=== PATIENT | female | born 1950 | race Two or more races ===

== ENCOUNTER 2025-02-20 08:58 | Outpatient (AMB) | payer MEDICAID, SELFPAY ==
[2025-02-20 09:15] VITALS: BP 143/85; PULSE 79; RESP 19; TEMP 36.3; O2SAT 96; BMI 32.5
--- NOTE | 2025-02-20 09:15 | PD.ORTHCLVIS ---
Vital signs 02/20/25 09:15 Height 1.65 m Height Method Stated Weight 88.706 kg Weight Measurement Method Standing Scale BMI 32.5 BP 143/85 H Blood Pressure Source Automatic Cuff Blood Pressure Location Left Upper Arm Position Sitting Respiration 19 Pulse 79 Pulse Source Monitor Temp 97.4 F Temp Source Temporal Artery Scan Pulse Oximetry (%) 96 Oxygen Delivery Method Room Air Med/Allergies Allergies & Medications Allergies No Known Allergies Allergy (Verified 02/20/25 09:16) Medication Reconciliation chlorthalidone 25 mg tablet 25 mg PO QDAY 06/27/20 [History Confirmed 02/20/25] gabapentin 300 mg capsule 300 mg PO QHS #30 caps 02/20/25 [Rx] ibuprofen 800 mg tablet 800 mg PO Q6H 02/20/25 [History Confirmed 02/20/25] rosuvastatin 10 mg tablet 10 mg PO QDAY 02/20/25 [History Confirmed 02/20/25] Exam Exam Breathing is nonlabored. Patient has a normal mood and affect. Bilateral extremities were evaluated and demonstrates sensation intact to light touch. Palpable pedal pulses are present. No significant edema is present. Bilateral hips were examined. The patient has no pain with log roll of the hips. Internal rotation to 30 degrees and external rotation to 30 degrees is painless. Negative FADIR. Left knee was examined today. The left knee is in reasonable alignment. Left knee incisions clean dry intact. Range of motion 0 to 110 degrees The right knee was also examined. The right knee is in varus alignment. Range of motion from 0-115 degrees. Knee is stable to varus and valgus as well as AP translation with <5mm. Patient has a negative McMurrays. There is no pain with patellofemoral compression and no crepitus noted. The knee is tender to palpation medially. Assessment and Plan Problem List (1) Arthritis of right knee: Status: Acute Plan: Patient is a 74-year-old female with right knee pain and right knee arthritis of significant severity. We have no ability to review the x-rays as they were done at [facility]. The report says no severe Tritus. She is failed conservative treatment. Her diabetes is well-controlled. I would like to see weightbearing x-rays and we will likely discuss surgery given her failure of conservative treatment. She is also complaining of multiple neurologic issues on the contralateral side. There is numbness and tingling in both her left hand and foot. I think she should see a neurologist. It is possible that this is neuropathy versus carpal tunnel. Advanced Care Planning Discussion Advance care planning discussed with:: patient Office Procedures GNS Level of Care Nursing/Assessment Patient Status: Initial/New Patient Nursing Assessment/Reassesment: Medication Reconciliation, Update PMH in EMR and Vital Signs Coordination of Care: Complex Care/Chronic Disease 5 or more, Education Complex Pt/Fam, Consent,records obtained, informed consent and Staff clarify orders New Patient Charge New Patient Point Assignment: 1099 New Patient Point Charge: MARKETING ADMINISTRATIVE ASSISTANT Level 3 (5582-6217) MT Intake Visit Data Collection New Patient or Established: New Patient (never been to [facility]) Reason for Visit:: RIGHT KNEE PAIN Do You Feel Safe at Home: Yes Questionairres Past Medical History Past Medical History Have you ever been diagnosed with any of the following: Neurological Problems Seizures: Yes Cardiology Problems Hypercholesterolemia: Yes (STOP CHOLESTEROL 06/09/20) Congestive Heart Failure: No Edema: No Cellulitis: No Hypertension: Yes Varicose Veins: No Respiratory Problems Chronic Obstructive Pulmonary Disease (COPD): No Pneumonia: No Tuberculosis: No Sleep Apnea: No Smoking: No Smoking Exposure: No Stomache/Intestinal Problems Hepatitis: No Genital/Urinary Problems Renal Disease: No Reproductive Problems Previous Pregnancies: Yes (X4) Endocrine Problems Diabetes Mellitus Type 1: No Diabetes Mellitus Type 2: No Psychologic Problems Depression: No Other Problems Hospitalization: No Shingles: No Falls: No Blood Transfusions: No Blood Transfusion Reaction: No Anesthesia Reactions: No Chemotherapy: No Radiation Therapy: No MRSA: No Chicken Pox: No Measles: No Mumps: No Cancer: No Surgical History Total Knee Replacement: Yes (LEFT TKA ) Pacemaker: No Subjective Visit Visit for: new patient and knee (RIGHT KNEE) Immunization / Flu Flu Vaccine in the Last 12 Months: Yes Flu Vaccine Exclusion Criteria: Already Received History of Present Illness Chief complaint: RIGHT KNEE PAIN Patient is a pleasant 74-year-old female with a history of a left total knee replacement done in [place]. She reports the right knee is now bothering her. This is an ongoing for over 5 years and is affecting her quality life and happiness. She has had multiple injections in [place] as well as anti-inflammatories. She can only walk a short distance before having pain. Of note, she reports Numbness and tingling in her left hand and left leg. She does have a history of diabetes but is well-controlled with an A1c of 6 Personal History Red flag PMH: none BMI Counceling provided: Yes Pain Pain level (0-10): 8 Pain duration: CONSTANT Pain location: anterior Pain timing: increases with activity and stairs Associated signs & symptoms: weakness Ambulatory data Ambulatory device: none Treatments Improvement with previous injections: No Improvement with PT: No Improvement with NSAIDS: yes Review of Systems Review of Systems: All systems negative unless otherwise noted in HPI.
--- NOTE | 2025-02-20 09:19 | XR_ITS ---
Examination: Bilateral knees 2 views Right lateral knee left lateral knee 2 views Bilateral axial knees single view Technique: Bilateral AP knees standing single view, bilateral PA knees standing single view flexion Standing right lateral knee left lateral knee 2 views Bilateral axial knees single view total 5 views Exam date and time: February 20, 2025 0928 hrs. Indications: Bilateral knee pain months. Findings: Moderate osteopenia Severe narrowing cibw-jg-[id number] medial joint space right knee Advanced osteoarthritis right patellofemoral joint No fracture Total left knee arthroplasty. Satisfactory alignment. No loosening of the prosthetic components Impression: Severe narrowing [id number] medial joint space right knee Severe osteoarthritis right patellofemoral joint
== END 2025-02-20 09:29 | disposition home or self-care (01) ==
PROVIDERS: PCP Physician Assistant; Referring Provider Physician Assistant; Supervising Provider Orthopaedic Surgery Adult Reconstructive Orthopaedic Surgery; Visit Provider Orthopaedic Surgery Adult Reconstructive Orthopaedic Surgery
DX: M17.11 Unilateral primary osteoarthritis, right knee (principal); M25.561 Pain in right knee; E11.9 Type 2 diabetes mellitus without complications; R20.0 Anesthesia of skin; R20.2 Paresthesia of skin; I10 Essential (primary) hypertension; E78.00 Pure hypercholesterolemia, unspecified
CPT/HCPCS: 73564; 99203; G0463

== ENCOUNTER 2025-03-06 10:43 | Outpatient (AMB) | payer MEDICAID, SELFPAY ==
[2025-03-06 11:03] VITALS: BP 158/82; PULSE 87; RESP 18; TEMP 36.4; O2SAT 95; BMI 32.3
--- NOTE | 2025-03-06 11:03 | PD.ORTHCLVIS ---
Vital signs 03/06/25 11:03 Height 1.65 m Height Method Stated Weight 88.11 kg Weight Measurement Method Standing Scale BMI 32.3 BP 158/82 H Blood Pressure Source Automatic Cuff Blood Pressure Location Right Upper Arm Position Sitting Respiration 18 Pulse 87 Pulse Source Monitor Temp 97.5 F Temp Source Temporal Artery Scan Pulse Oximetry (%) 95 Oxygen Delivery Method Room Air Med/Allergies Allergies & Medications Allergies No Known Allergies Allergy (Verified 03/06/25 11:03) Medication Reconciliation chlorthalidone 25 mg tablet 25 mg PO QDAY 06/27/20 [History Confirmed 03/06/25] gabapentin 300 mg capsule 300 mg PO QHS #30 caps 02/20/25 [Rx Confirmed 03/06/25] ibuprofen 800 mg tablet 800 mg PO Q6H 02/20/25 [History Confirmed 03/06/25] omeprazole 20 mg capsule,delayed release 20 mg PO QDAY #30 caps 02/20/25 [Rx Confirmed 03/06/25] rosuvastatin 10 mg tablet 10 mg PO QDAY 02/20/25 [History Confirmed 03/06/25] Exam Exam Breathing is nonlabored. Patient has a normal mood and affect. Bilateral extremities were evaluated and demonstrates sensation intact to light touch. Palpable pedal pulses are present. No significant edema is present. Bilateral hips were examined. The patient has no pain with log roll of the hips. Internal rotation to 30 degrees and external rotation to 30 degrees is painless. Negative FADIR. Left knee was examined today. The left knee is in reasonable alignment. Left knee incisions clean dry intact. Range of motion 0 to 110 degrees The right knee was also examined. The right knee is in varus alignment. Range of motion from 0-115 degrees. Knee is stable to varus and valgus as well as AP translation with <5mm. Patient has a negative McMurrays. There is no pain with patellofemoral compression and no crepitus noted. The knee is tender to palpation medially. X-rays demonstrate a left total knee replacement good alignment position. The right knee demonstrates varus deformity with complete obliteration of the medial joint space. Osteophytes are present as well Assessment and Plan Problem List (1) Arthritis of right knee: Status: Acute Plan: Patient is a 74-year-old female with right knee pain and right knee arthritis of significant severity. Her x-rays demonstrate significant joint space narrowing And severe arthritis. We thus discussed total knee replacement is a reasonable option as she has failed conservative treatment including injections (three), anti-inflammatories, and physical therapy with minimal relief. Plan The nature and purpose of the total knee replacement, alternative method(s) of treatment, the material risks involved, and the possibility of complications were fully explained to the patient. The patient does NOT have any of the following contraindications to TKA: - Active infection of the knee joint, OR - Active systemic bacteremia, OR - Active skin infection or open wound at surgical site, OR - Neuropathic arthritis, OR - Severe, rapidly progressive neurological disease, OR - Severe medical condition that makes risks of surgery outweigh the potential benefit The patient was told the most common risks and complications associated with a total knee replacement include, but are not limited to: blood clots in the leg, fatal pulmonary embolism, dislocation of the prosthesis, intraoperative and postoperative fractures of the femur or tibia, infection, failure of the prosthesis or grafting materials, complications from anesthesia, reactions to blood transfusions, postoperative leg length inequality, instability of the knee replacement, nerve damage or injury, vascular injury, delayed wound healing, infection, other injury or even . In addition, there are risks associated with anesthesia given during this operation. Also, the patient was told that after undergoing a total knee replacement there may still be persistent pain or disability. The patient was informed that the success of this operation in part depends upon the mechanical devices which are going to be implanted and that these devices can fail or malfunction, and may need to be repaired or replaced and there are no guarantees as to the longevity of this device or its parts and that it or its parts could fail prematurely. The patient was also notified that during the course of surgery, there may be a need to use bone graft from donors, and that any bone graft used will be carefully screened for communicable diseases, including AIDS, hepatitis, Shahab-Creutzfeldt, or other diseases, but despite the screening procedures, there is a small chance that they could contract one of these diseases. Finally, the patient was asked to follow completely and fully with all advice and recommended treatments, and that recovery and ultimate outcome are affected by their compliance with recommended treatment. We discussed the risks, benefits and treatment alternatives, and the patient is interested in proceeding with surgery. We will try to set this up as expeditiously as possible. Advanced Care Planning Discussion Advance care planning discussed with:: patient and other Office Procedures GNS Level of Care Nursing/Assessment Patient Status: Established Patient Nursing Assessment/Reassesment: Medication Reconciliation, Update PMH in EMR and Vital Signs Coordination of Care: Complex Care and Chronic Disease 1-5, Education Complex Pt/Fam, Consent,records obtained, informed consent, Results/Orders obtained and Staff clarify orders Special Needs: Language special needs Established Patient Charge Established Patient Point Assignment: 95 Established Patient Point Charge: EP Level 3 (80-115) MA Intake Visit Data Collection New Patient or Established: Established Patient (seen at [facility] within 3 years) Reason for Visit:: F/U XRAYS Seen by Clinical Staff ONLY (RN/MA): No Verbal consent obtained for Telemed visit?: No Executor Of Estate Required: Yes PCP or OBGYN visit in last 3 months: Yes Hx Now: No Do You Feel Safe at Home: Yes Authorities Contacted: N/A Questionairres Past Medical History Past Medical History Have you ever been diagnosed with any of the following: Neurological Problems Seizures: Yes Cardiology Problems Hypercholesterolemia: Yes (STOP CHOLESTEROL 06/09/20) Congestive Heart Failure: No Edema: No Cellulitis: No Hypertension: Yes Varicose Veins: No Respiratory Problems Chronic Obstructive Pulmonary Disease (COPD): No Pneumonia: No Tuberculosis: No Sleep Apnea: No Smoking: No Smoking Exposure: No Stomache/Intestinal Problems Hepatitis: No Genital/Urinary Problems Renal Disease: No Reproductive Problems Previous Pregnancies: Yes (X4) Endocrine Problems Diabetes Mellitus Type 1: No Diabetes Mellitus Type 2: No Psychologic Problems Depression: No Other Problems Hospitalization: No Shingles: No Falls: No Blood Transfusions: No Blood Transfusion Reaction: No Anesthesia Reactions: No Chemotherapy: No Radiation Therapy: No MRSA: No Chicken Pox: No Measles: No Mumps: No Cancer: No Surgical History Total Knee Replacement: Yes (LEFT TKA ) Pacemaker: No Subjective Visit Visit for: follow up visit and x-rays Immunization / Flu Flu Vaccine in the Last 12 Months: No Flu Vaccine Exclusion Criteria: No Exclusion Criteria History of Present Illness Chief complaint: F/U XRAYS Patient is a pleasant 74-year-old female with a history of a left total knee replacement done in [place]. She reports the right knee is now bothering her. This has been ongoing for over 5 years and is affecting her quality life and happiness. She has had multiple injections in [place] as well as anti-inflammatories. She can only walk a short distance before having pain. Of note, she reports Numbness and tingling in her left hand and left leg. She does have a history of diabetes but is well-controlled with an A1c of 6. Personal History Occupation: RETIRED Red flag PMH: BMI BMI Counceling provided: Yes Pain Pain level (0-10): 8 Pain duration: CONSTANT Pain location: anterior Pain quality: dull and aching Pain timing: increases with activity Associated signs & symptoms: none Ambulatory data Ambulatory device: cane Treatments Improvement with previous injections: No Improvement with PT: No Improvement with NSAIDS: no Review of Systems Review of Systems: All systems negative unless otherwise noted in HPI.
== END 2025-03-06 11:31 | disposition home or self-care (01) ==
LOC: HODSRG 10:43
PROVIDERS: PCP Physician Assistant; Referring Provider Physician Assistant; Supervising Provider Orthopaedic Surgery Adult Reconstructive Orthopaedic Surgery; Visit Provider Orthopaedic Surgery Adult Reconstructive Orthopaedic Surgery
DX: M17.11 Unilateral primary osteoarthritis, right knee (principal); Z96.652 Presence of left artificial knee joint; E78.00 Pure hypercholesterolemia, unspecified; I10 Essential (primary) hypertension; E11.9 Type 2 diabetes mellitus without complications
CPT/HCPCS: 99213; G0463

== ENCOUNTER 2025-06-19 13:43 | Outpatient (AMB) | payer MEDICAID, SELFPAY ==
--- NOTE | 2025-06-19 13:56 | PD.ORTHCLVIS ---
Vital signs 06/19/25 14:03 Height 1.65 m Height Method Stated Weight 88.507 kg Weight Measurement Method Standing Scale BMI 32.5 BP 119/67 Blood Pressure Source Automatic Cuff Blood Pressure Location Left Upper Arm Position Sitting Respiration 18 Pulse 69 Pulse Source Monitor Temp 97.7 F Temp Source Temporal Artery Scan Pulse Oximetry (%) 93 L Oxygen Delivery Method Room Air Med/Allergies Allergies & Medications Allergies No Known Allergies Allergy (Verified 06/19/25 14:04) Medication Reconciliation chlorthalidone 25 mg tablet 25 mg PO QDAY 06/27/20 [History Confirmed 06/19/25] gabapentin 300 mg capsule 300 mg PO QHS #30 caps 02/20/25 [Rx Confirmed 06/19/25] ibuprofen 800 mg tablet 800 mg PO Q6H 02/20/25 [History Confirmed 06/19/25] omeprazole 20 mg capsule,delayed release 20 mg PO QDAY #30 caps 02/20/25 [Rx Confirmed 06/19/25] rosuvastatin 10 mg tablet 10 mg PO QDAY 02/20/25 [History Confirmed 06/19/25] Exam Exam Breathing is nonlabored. Patient has a normal mood and affect. Bilateral extremities were evaluated and demonstrates sensation intact to light touch. Palpable pedal pulses are present. No significant edema is present. Bilateral hips were examined. The patient has no pain with log roll of the hips. Internal rotation to 30 degrees and external rotation to 30 degrees is painless. Negative FADIR. Left knee was examined today. The left knee is in reasonable alignment. Left knee incisions clean dry intact. Range of motion 0 to 110 degrees The right knee was also examined. The right knee is in varus alignment. Range of motion from 0-115 degrees. Knee is stable to varus and valgus as well as AP translation with <5mm. Patient has a negative McMurrays. There is no pain with patellofemoral compression and no crepitus noted. The knee is tender to palpation medially. X-rays demonstrate a left total knee replacement good alignment position. The right knee demonstrates varus deformity with complete obliteration of the medial joint space. Osteophytes are present as well Assessment and Plan Problem List (1) Arthritis of right knee: Status: Acute Plan: Patient is a 74-year-old female with right knee pain and right knee arthritis of significant severity. Her x-rays demonstrate significant joint space narrowing And severe arthritis. We thus discussed total knee replacement is a reasonable option as she has failed conservative treatment including injections (three), anti-inflammatories, and physical therapy with minimal relief. Plan The nature and purpose of the total knee replacement, alternative method(s) of treatment, the material risks involved, and the possibility of complications were fully explained to the patient. The patient does NOT have any of the following contraindications to TKA: - Active infection of the knee joint, OR - Active systemic bacteremia, OR - Active skin infection or open wound at surgical site, OR - Neuropathic arthritis, OR - Severe, rapidly progressive neurological disease, OR - Severe medical condition that makes risks of surgery outweigh the potential benefit The patient was told the most common risks and complications associated with a total knee replacement include, but are not limited to: blood clots in the leg, fatal pulmonary embolism, dislocation of the prosthesis, intraoperative and postoperative fractures of the femur or tibia, infection, failure of the prosthesis or grafting materials, complications from anesthesia, reactions to blood transfusions, postoperative leg length inequality, instability of the knee replacement, nerve damage or injury, vascular injury, delayed wound healing, infection, other injury or even . In addition, there are risks associated with anesthesia given during this operation. Also, the patient was told that after undergoing a total knee replacement there may still be persistent pain or disability. The patient was informed that the success of this operation in part depends upon the mechanical devices which are going to be implanted and that these devices can fail or malfunction, and may need to be repaired or replaced and there are no guarantees as to the longevity of this device or its parts and that it or its parts could fail prematurely. The patient was also notified that during the course of surgery, there may be a need to use bone graft from donors, and that any bone graft used will be carefully screened for communicable diseases, including AIDS, hepatitis, Shahab-Creutzfeldt, or other diseases, but despite the screening procedures, there is a small chance that they could contract one of these diseases. Finally, the patient was asked to follow completely and fully with all advice and recommended treatments, and that recovery and ultimate outcome are affected by their compliance with recommended treatment. We discussed the risks, benefits and treatment alternatives, and the patient is interested in proceeding with surgery. We will try to set this up as expeditiously as possible. Advanced Care Planning Discussion Advance care planning discussed with:: patient and other Office Procedures GNS Level of Care Nursing/Assessment Patient Status: Established Patient Nursing Assessment/Reassesment: Medication Reconciliation, Update PMH in EMR and Vital Signs Coordination of Care: Complex Care and Chronic Disease 1-5, Education Complex Pt/Fam, Consent,records obtained, informed consent, Results/Orders obtained and Staff clarify orders Established Patient Charge Established Patient Point Assignment: 95 Established Patient Point Charge: EP Level 3 (80-115) MA Intake Visit Data Collection New Patient or Established: Established Patient (seen at [facility] within 3 years) Reason for Visit:: F/U XRAYS Seen by Clinical Staff ONLY (RN/MA): No Verbal consent obtained for Telemed visit?: No Human Resource Statistician Required: Yes PCP or OBGYN visit in last 3 months: Yes Hx Now: No Do You Feel Safe at Home: Yes Authorities Contacted: N/A Questionairres Past Medical History Past Medical History Have you ever been diagnosed with any of the following: Neurological Problems Seizures: Yes Cardiology Problems Hypercholesterolemia: Yes (STOP CHOLESTEROL 06/09/20) Congestive Heart Failure: No Edema: No Cellulitis: No Hypertension: Yes Varicose Veins: No Respiratory Problems Chronic Obstructive Pulmonary Disease (COPD): No Pneumonia: No Tuberculosis: No Sleep Apnea: No Smoking: No Smoking Exposure: No Stomache/Intestinal Problems Hepatitis: No Genital/Urinary Problems Renal Disease: No Reproductive Problems Previous Pregnancies: Yes (X4) Endocrine Problems Diabetes Mellitus Type 1: No Diabetes Mellitus Type 2: No Psychologic Problems Depression: No Other Problems Hospitalization: No Shingles: No Falls: No Blood Transfusions: No Blood Transfusion Reaction: No Anesthesia Reactions: No Chemotherapy: No Radiation Therapy: No MRSA: No Chicken Pox: No Measles: No Mumps: No Cancer: No Surgical History Total Knee Replacement: Yes (LEFT TKA ) Pacemaker: No Subjective Visit Visit for: follow up visit and x-rays Immunization / Flu Flu Vaccine in the Last 12 Months: No Flu Vaccine Exclusion Criteria: No Exclusion Criteria History of Present Illness Chief complaint: F/U XRAYS Patient is a pleasant 74-year-old female with a history of a left total knee replacement done in [place]. She reports the right knee is now bothering her. This has been ongoing for over 5 years and is affecting her quality life and happiness. She has had multiple injections in [place] as well as anti-inflammatories. She can only walk a short distance before having pain. Of note, she reports Numbness and tingling in her left hand and left leg. She does have a history of diabetes but is well-controlled with an A1c of 6. Personal History Occupation: RETIRED Red flag PMH: BMI BMI Counceling provided: Yes Pain Pain level (0-10): 8 Pain duration: CONSTANT Pain location: anterior Pain quality: dull and aching Pain timing: increases with activity Associated signs & symptoms: weakness Ambulatory data Ambulatory device: none Treatments Improvement with previous injections: No Improvement with PT: No Improvement with NSAIDS: no Review of Systems Review of Systems: All systems negative unless otherwise noted in HPI.
[2025-06-19 14:03] VITALS: BP 119/67; PULSE 69; RESP 18; TEMP 36.5; O2SAT 93; BMI 32.5
== END 2025-06-19 14:42 | disposition home or self-care (01) ==
PROVIDERS: PCP Physician Assistant; Referring Provider Physician Assistant; Supervising Provider Orthopaedic Surgery Adult Reconstructive Orthopaedic Surgery; Visit Provider Orthopaedic Surgery Adult Reconstructive Orthopaedic Surgery
DX: M17.11 Unilateral primary osteoarthritis, right knee (principal); M25.561 Pain in right knee; R20.0 Anesthesia of skin; R20.2 Paresthesia of skin; I10 Essential (primary) hypertension; E78.00 Pure hypercholesterolemia, unspecified; E11.9 Type 2 diabetes mellitus without complications
CPT/HCPCS: 99213; G0463

== ENCOUNTER → 2025-06-28 | Outpatient (CLI) | payer MEDICAID, SELFPAY ==
--- NOTE | 2025-06-28 15:46 | XR_ITS ---
Examination: CT right lower extremity, without contrast. 2-D sagittal reconstructions. 2-D coronal reconstructions. 3-D reconstructions. Date and time of exam:June 28, 2025, 1553 hours INDICATIONS: Diagnosis lesion lateral right knee osteoarthritis, right knee pain 10 years CTDI: vol (mGy):13.3 DLP: (mGycm):10.11 Technique: Multiple 1.25 mm axial sections of the right lower extremity without intravenous contrast have been obtained. 2-D sagittal and coronal reconstructions have been obtained. 3-D reconstructions have been obtained. Low dose protocols were performed. One or more of the following dose reduction techniques were used; automated exposure control, adjustment of the mA and/or KV according to patient size, use of iterative reconstruction technique. Findings: Severe osteopenia Moderate narrowing right hip joint No right hip fracture or dislocation. No avascular necrosis. Advanced tricompartment right knee osteoarthritis including severe narrowing medial joint space and severe narrowing lateral patellofemoral joint No fractures IMPRESSION: Advanced tricompartment right knee osteoarthritis including severe narrowing medial joint space and severe narrowing lateral patellofemoral joint
== END | disposition home or self-care (01) ==
PROVIDERS: PCP Orthopaedic Surgery Adult Reconstructive Orthopaedic Surgery; Referring Provider Orthopaedic Surgery Adult Reconstructive Orthopaedic Surgery; Visit Provider Orthopaedic Surgery Adult Reconstructive Orthopaedic Surgery
DX: M17.11 Unilateral primary osteoarthritis, right knee (principal); M25.861 Other specified joint disorders, right knee
CPT/HCPCS: 73700

== ENCOUNTER 2025-07-02 06:45 | Day surgery (SDC) | payer MEDICAID, SELFPAY ==
--- NOTE | 2025-06-28 13:15 | EKG_ITS ---
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
[2025-06-28 13:25] VITALS: BMI 35.6
[2025-06-28 14:36] LABS: Basophils # (Auto) 0.0 Thou/mm3 (0.0-0.2); Basophils % (Auto) 0 % (0-2.5); Eosinophils # (Auto) 0.1 Thou/mm3 (0.0-0.5); Eosinophils % (Auto) 1 % (0-10); Hematocrit 35.6 % (36.0-46.0); Hemoglobin 11.5 g/dL (12.0-16.0); Immature Granulocytes Auto 0.05 Thou/mm3 (0.00-0.00); Lymphocytes # (Auto) 2.4 Thou/mm3 (1.0-4.8); Lymphocytes % (Auto) 27 % (10-50); Mean Corpuscular HGB Conc 32.3 g/dl (31.0-37.0); Mean Corpuscular Hemoglobin 27.3 pg (25.0-35.0); Mean Corpuscular Volume 84 fL (80-100); Monocytes # (Auto) 0.9 Thou/mm3 (0.0-0.8); Monocytes % (Auto) 10 % (0-12); Neutrophils # (Auto) 5.5 Thou/mm3 (1.8-7.7); Neutrophils % (Auto) 62 % (37-80); Nucleated Red Blood Cell # 0.00 Thou/mm3 (0.00-0.00); Nucleated Red Blood Cell % 0 /100 WBC (0); Platelet Count 234 Thou/mm3 (140-440); RDW Standard Deviation 41.6 fL (36.4-46.3); Red Blood Count 4.22 Miln/mm3 (4.00-5.20); White Blood Count 8.9 Thou/mm3 (3.6-11.0)
[2025-06-28 15:09] LABS: Alanine Aminotransferase 13 U/L (10-49); Albumin, Serum 4.7 gm/dL (3.4-4.8); Albumin/Globulin Ratio 1.7 (1.2-2.2); Alkaline Phosphatase 97 U/L (46-116); Anion Gap 12 (7-16); Aspartate Amino Transferase 21 U/L (0-34); BUN/Creatinine Ratio 22 Ratio (12-20); Bilirubin,Total 0.4 mg/dL (0.3-1.2); Blood Urea Nitrogen 31 mg/dL (9-23); Calcium 10.3 mg/dL (8.3-10.6); Calcium (Corrected) 10.3 mg/dL (8.5-10.1); Carbon Dioxide 25.4 mMol/L (20.0-31.0); Chloride 102 mMol/L (98-107); Creatinine (Component) 1.4 mg/dL (0.6-1.3); Estimated Creatinine Clearance 37.3 mL/min (>60); Globulin 2.8 gm/dL (2.3-3.5); Glucose 105 mg/dL (74-106); Osmolality,Calculated 284 (275-295); Potassium 3.3 mMol/L (3.4-5.1); Sodium 139 mMol/L (136-145); Total Protein 7.5 gm/dL (5.7-8.2); eGFR 39 See Note
[2025-06-28 15:29] LABS: INR 0.9 (0.9-1.3); Partial Thromboplastin Time 27.5 Seconds (22.0-36.0); Prothrombin Time 9.9 Seconds (9.0-12.2)
[2025-07-02] VITALS (17 sets, daily range): BP systolic 103–127; BP diastolic 48–75; PULSE 63–74; RESP 10–22; TEMP 36.1–36.8; O2SAT 95–100; BMI 36.6; BMI 13.0
[2025-07-02] MEDS: RINGERS LACTATED 1000 ML 1,000 ML 20 ML IV (07:41)
[2025-07-02] MEDS: MELOXICAM 7.5 MG TABLET PO (07:43)
[2025-07-02] MEDS: PREGABALIN 75 MG CAPSULE PO (07:43)
[2025-07-02] MEDS: ACETAMINOPHEN 325 MG TABLET 650 MG PO (07:43)
--- NOTE | 2025-07-02 07:44 | SUR.PREOP ---
Patient expressed gratitude for prayer before their procedure.
--- NOTE | 2025-07-02 07:44 | SUR.PREOP ---
Patient expressed gratitude for prayer before their procedure.
--- NOTE | 2025-07-02 09:32 | PD.SUROPNT ---
Date of Procedure 07/02/25 Pre Op Diagnosis right knee osteoarthritis Post Op Diagnosis right knee osteoarthritis Procedure right total knee replacement Findings full thickness cartilage loss and osteophytes Procedure Description Indication: The patient is a 74 year old who has a long history of right knee pain. X-rays show degenerative arthritis involving the knee. Over the past several years the patient has had increasing pain, progressive limitation in function. He has failed conservative measures including activity modification, physical therapy, injections, anti-inflammatories, and assistive devices. After a lengthy discussion of the risks and benefits, the patient presents now for total knee replacement. The nature and purpose of the total knee replacement, alternative method(s) of treatment, the material risks involved, and the possibility of complications were fully explained to the patient. The patient was told the most common risks and complications associated with a total knee replacement include, but are not limited to blood clots in the leg, fatal pulmonary embolism, dislocation of the prosthesis, intraoperative and postoperative fractures of the femur or tibia, infection, failure of the prosthesis or grafting materials, complications from anesthesia, reactions to blood transfusions, postoperative leg length inequality, instability of the knee replacement, nerve damage or injury, vascular injury, delayed wound healing, infections, other injury or even . In addition, there are risks associated with anesthesia given during this operation, temporary or permanent numbness on the skin lateral to the incision can be a complication unique to total knee surgery, and kneeling can be painful after knee replacement surgery. Also, the patient was told that after undergoing a total knee replacement there may still be pain or disability. We discussed with the patient that we will be using a robot-assisted technology. We discussed that there is a possibility of converting to manual instrumentation. The patient was informed that the success of this operation in part depends upon the mechanical devices which are going to be implanted and that these devices can fail or malfunction, and may need to be repaired or replaced and there are no guarantees as to the longevity of this device or its part and that it or its parts could fail prematurely. Finally, the patient was asked to follow completely and fully with all advice and recommended treatments, and that recovery and ultimate outcome are affected by their compliance with recommended treatment. Surgical technique: Patient was marked and consented in the pre-operative area. The patient was brought to the operating room and placed on the operating table in a supine position. Prior to positioning, a timeout procedure was performed between the surgeon, the anesthesiologist, and the nursing staff where the patient and the operative side were identified and confirmed. After adequate general anesthetic was obtained, the right lower extremity was prepped and draped in the usual sterile fashion. A weight based dose of Cefazolin were administered within 1 hour prior to incision. The robot was preregistered and calirated before the incision. The extremity was exsanguinated with an esmarch badge and tourniquet inflated to 250mmHg. A midline incision was made. A median parapatellar arthrotomy was made. The patella was subluxed laterally. A medial release was performed to expose the medial tibia. His femoral and tibial pins were placed through an intra incisional manner for both cases. Every effort was made to ensure that the distalmost aspect of the pin was hung in the second cortex. The arrays were then tightened several times to ensure that it was fixed for the remainder of the case. Both femoral and tibial checkpoints were then placed. We then went through the registration process of the bone. We then assessed the knee deformity and attempted to correct it. We also used the robot to aid in judging laxity in both extension and flexion. Final based on laxity and alignment we changed the preoperative assessment to obtain proper proper implant positioning and to correct deformity. Attention was then placed to the tibia. We made a tibial cut using the robot ensuring that both the MCL and the patella tendon were protected with retractors. We then went to the femur and made the posterior cut followed by the anterior cut and the anterior chamfer. The bone was then removed and we made a distal femur cut and a posterior chamfer cut. We verified all cuts. A trial reduction was performed with a size 5 femoral component and a size 4 keeled tibial component. The patella was cut and sized to a [33]. The patella tracked centrally, and no lateral retinacular release was necessary. The trial implants were removed. The arrays, pins, and checkpoints were all removed. We performed a verification that all pins were removed. The cut bone surfaces were lavaged. A size 5 right femoral component, a size 4 keeled tibial component, and a size [33] patella were impacted into position. The knee was felt to be well balanced in the sagittal and coronal plane. The final 4x11 mm cruciate-substituting articular insert was impacted into the tibial tray. The knee was brought out to full extension, flexed up to 120 degrees. It was stable to varus and valgus stress and appropriately balanced in flexion and extension. The wounds were copiously irrigated following deflation of tourniquet. The medial retinaculum was reapproximated with #1 vicryl and quill. The subcutaneous tissues were closed with 0 and 2-0 interrupted Vicryl. The skin was closed with 3-0 Monofilament V loc suture. A sterile dressing was applied. The patient was transferred to a bed and brought to recovery in stable condition. The patient tolerated the procedure well. There were no intraoperative complications. Sponge and needle counts were correct times 2. As the attending surgeon, Prashant anaya I was present and performed the entire operation. Grafts/Implants Size 5 CR Femur Size 4 Tibia 11mm poly CS [33]mm patella Implants meena Pathology / specimen None Pathology comment: none Estimated Blood Loss 150 Condition Stable Disposition same day Surgeon Gustavo Quintana MD Surgical Staff Operation Date: 07/02/25 10:00 <No data on this case meets the specified criteria>
--- NOTE | 2025-07-02 11:13 | XR_ITS ---
Examination: Right knee 2 views Technique one AP lateral right knee 2 views Date and time: July 02, 2025 1338 hours INDICATIONS: Postop knee replacement FINDINGS: Total right knee arthroplasty. Satisfactory alignment. No fracture IMPRESSION: Total right knee arthroplasty with satisfactory alignment
--- NOTE | 2025-07-02 11:44 | SUR.PHASEI ---
Pt. arrived to recovery via gurney, responds to verbal commands, VSS, lung sounds clear, equal expansion nadeem., pt. receiving 10 liters 02 via oxymask, dressing to right knee, prineo, telfa, abd. pad, web roll and allan wrap intact, no active bleeding, redness or swelling noted, pedal pulses present and palpable nadeem., cap refill <3 seconds to right great toe. Pt. has c/o headache and right knee pain. Per Syed NEGRETE pt.'s spinal anesthesia was not effective, pt. was converted to general anesthesia. Assessed sensation to cold, pt. is fully reversed from spinal. Syed NEGRETE ordered ofirmev 1gm IV x1 for headache and knee pain, will endorse. Report on pt. received from Dimple HARDY and Syed NEGRETE and Deshaun WOOD.
[2025-07-02] MEDS: ACETAMINOPHEN IVPB 1,000 MG/100 ML VIAL 250 MG IV (12:05)
[2025-07-02] MEDS: oxyCODONE HCL 5 MG IR TAB PO (13:17)
--- NOTE | 2025-07-02 14:46 | SUR.PHASEII ---
5789 patient cleared by physical therapy Vikki unable to void, will continue to encourage fluids
--- NOTE | 2025-07-02 15:27 | SUR.PHASEII ---
patient ate half of sandwich, orange and drinking water, tolerating well, denies nasuea
--- NOTE | 2025-07-02 16:05 | SUR.PHASEII ---
1605 patient voided in the bed with purewick, urine output 150ml, will proceed with discharge
--- NOTE | 2025-07-02 16:17 | SUR.PHASEII ---
1617 Patient meets discharge criteria from recovery, awake and alert, breathing unlabored, vital signs stable, denies pain, dressing intact; no bleeding noted, assisted with dressing into her clothing by her daughter, patient voided in the restroom prior to discharge, patient signed limited proficiency statement for her daughter to slip tender Divehi to her, discharge instructions given to patient and patient daughter, daughter signed discharge instructions. Patient given all her belongings prior to discharge, transported via wheelchair and left in a private vehicle.
== END 2025-07-02 16:17 | disposition home or self-care (01) ==
PROVIDERS: Anesthesiology; PCP Family Medicine; Referring Provider Orthopaedic Surgery Adult Reconstructive Orthopaedic Surgery; Visit Provider Orthopaedic Surgery Adult Reconstructive Orthopaedic Surgery
PROC: (CPT 27447; principal; 2025-07-02 09:45)
DX: M17.11 Unilateral primary osteoarthritis, right knee (principal); M25.761 Osteophyte, right knee; Z01.810 Encounter for preprocedural cardiovascular examination
CPT/HCPCS: 27447; 20985; 36415; 73560; 80053; 85025; 85610; 85730; 93005; 97162; A4217; A4649; C1713; C1776; J0131; J0690; J2405; J2704; J2795; J3010; J3490; J7120; J7999; A4648; A9270

== ENCOUNTER 2025-07-03 19:19 | Emergency (ER) | payer MEDICAID, SELFPAY ==
[2025-07-03 19:20] VITALS: BP 149/82; PULSE 68; RESP 18; TEMP 36.4; O2SAT 97
--- NOTE | 2025-07-03 19:26 | EKG_ITS ---
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
--- NOTE | 2025-07-03 19:26 | XR_ITS ---
Examination: AP chest single view FINDINGS: AP portable upright chest single view Date and time: July 03, 2025, 2013 hours INDICATIONS: Syncopal episodes today. FINDINGS: Normal heart size. No aspiration pneumonia. No pulmonary edema. Prominent osteopenia. IMPRESSION: Negative for aspiration pneumonia.
--- NOTE | 2025-07-03 19:27 | PD.EDSYNC ---
ED Syncope RME/HPI General Chief Complaint: Syncope / Near Syncope Stated Complaint: SYNCOPE Time Seen by Provider: 07/03/25 19:25 Arrival date/time: 07/03/25 19:19 Limitations: no limitations RME / HPI RME / HPI narrative: 74-year-old female who is brought in by EMS. She speaks Bulgarian. She is here today with possible syncopal episode at home. She is 1 day status post right knee replacement. History is limited due to language. Workup was initiated. Her daughter arrives at a later time provides further history. Her daughter states the patient has felt weak today. She normally takes gabapentin at night but accidentally took a dose this morning. She has felt sleepy and tired since. She went to the bathroom, felt drowsy, and intermittently weak, but she had no falls or loss of consciousness. She had no emesis. She had no chest pain or shortness of breath at that time. But she did look diaphoretic. She has no acute lower leg edema or pain outside of her knee. She has no lower leg pain. She has no chest pain or shortness of breath at this time. Related Data Home Medications ?Medication ?Instructions ?Recorded ?Confirmed chlorthalidone 25 mg tablet 25 mg PO QDAY 06/27/20 07/02/25 rosuvastatin 10 mg tablet 10 mg PO QDAY 02/20/25 07/02/25 amlodipine 10 mg tablet 10 mg PO DAILY 07/02/25 07/02/25 amlodipine 5 mg tablet 5 mg PO HS 07/02/25 07/02/25 atenolol 50 mg tablet 50 mg PO DAILY 07/02/25 07/02/25 Previous Rx's ?Medication ?Instructions ?Recorded gabapentin 300 mg capsule 300 mg PO QHS #30 caps 02/20/25 omeprazole 20 mg capsule,delayed 20 mg PO QDAY #30 caps 02/20/25 release acetaminophen 500 mg tablet 1,000 mg (2 x 500 mg) PO Q6H PRN 07/02/25 (Acetaminophen Extra Strength) pain #90 tabs aspirin 81 mg tablet,delayed 81 mg PO BID #60 tabs 07/02/25 release doxycycline hyclate 100 mg tablet 100 mg PO BID #14 tabs 07/02/25 gabapentin 300 mg capsule 300 mg PO .qhs #30 caps 08/18/25 oxycodone 5 mg tablet 5 mg PO Q6H PRN pain #28 tabs 07/02/25 sennosides 8.6 mg-docusate sodium 1 tab-cap PO QDAY #30 tabs 07/02/25 50 mg tablet (Senna-S) magnesium oxide 400 mg PO BID #60 tabs 07/04/25 Allergies Allergy/AdvReac Type Severity Reaction Status Date / Time No Known Allergies Allergy Verified 07/02/25 07:05 Review of Systems Review of Systems Systems Reviewed: All systems reviewed, normal except as documented ED Exam General Limitations: Present no limitations General appearance: Present alert and in no apparent distress Head Head exam: Present atraumatic Eye Eye exam: Present normal appearance, PERRL and EOMI ENT ENT exam: Present normal exam, normal oropharynx and mucous membranes moist Neck Neck exam: Present normal inspection, full ROM and trachea midline Chest Chest inspection: Present normal inspection and symmetric chest wall rise Respiratory Respiratory exam: Present normal lung sounds bilaterally Cardiovascular Cardiovascular exam: Present regular rate, normal rhythm and normal heart sounds Abdominal Exam Abdominal exam: Present soft and normal bowel sounds Extremities Exam Extremities exam: Present other (No fluctuance or drainage at the knee.) Back Exam Back exam: Present normal inspection and full ROM Neurological Exam Neurological exam: Present alert and oriented X3 Psychiatric Psychiatric exam: Present normal affect and normal mood Skin Skin exam: Present warm, dry, intact and normal color Course Quality Measures none Orders Category Date Time Status Bedside COVID-19 Antigen Test NOW Care 07/03/25 22:54 Completed Bedside Influenza A&B Antigen Test NOW Care 07/03/25 22:[address] Screening NOW Care 07/03/25 19:[address] Screening NOW Care 07/03/25 22:[address] Screening X1 Care 07/03/25 19:26 Completed EKG (ED ONLY) *Do not use* NOW Care 07/03/25 19:26 Completed Saline [Insert IV] NOW Care 07/03/25 22:54 Completed Straight [In and Out Catheter] X1 Care 07/03/25 22:[address] head/brain wo con Stat Exams 07/03/25 22:55 Completed EKG (ED Only) Stat Exams 07/03/25 19:26 Draft XR chest 1V Stat Exams 07/03/25 19:26 Completed BNP [B-Type Natriuretic Peptide] Stat Lab 07/03/25 19:56 Completed CBC Stat Lab 07/03/25 19:56 Completed CMP [Comprehensive Metabolic Panel] Stat Lab 07/03/25 19:56 Completed D-Dimer Stat Lab 07/03/25 19:56 Completed Lipase Stat Lab 07/03/25 19:56 Completed Mag [Magnesium] Stat Lab 07/03/25 19:56 Completed Thyroid Stimulating Hormone Stat Lab 07/03/25 19:56 Completed Troponin I Stat Lab 07/03/25 19:56 Completed KCL 10% Liq UDC 15 ML Med 07/03/25 22:53 Discontinued 40 meq PO X1 ONE Magnesium Sulfate 1 gm Ivpb [Magnesium Sulfate Ivpb] Med 07/03/25 21:13 Discontinued 1 gm in 100 ml IV X1 Magnesium Sulfate 1 gm Ivpb [Magnesium Sulfate Ivpb] Med 07/03/25 22:53 Discontinued 1 gm in 100 ml IV X1 Sodium Chloride 0.9% 500 ml [Ns] 500 ml Med 07/03/25 21:13 Discontinued IV 999 mls/hr Vital Signs Vital signs: Vital Signs Temperature 97.5 F 07/03/25 19:20 Pulse Rate 68 07/03/25 19:20 Respiratory Rate 18 07/03/25 19:20 Blood Pressure 149/82 H 07/03/25 19:20 Pulse Oximetry (%) 97 07/03/25 19:20 Oxygen Delivery Method Room Air 07/03/25 19:20 Syncope MDM Narrative MDM Narrative:: 74-year-old female who is brought in by EMS. She speaks Bulgarian. She is here today with possible syncopal episode at home. She is 1 day status post right knee replacement. History is limited due to language. Workup was initiated. Her daughter arrives at a later time provides further history. Her daughter states the patient has felt weak today. She normally takes gabapentin at night but accidentally took a dose this morning. She has felt sleepy and tired since. She went to the bathroom, felt drowsy, and intermittently weak, but she had no falls or loss of consciousness. She had no emesis. She had no chest pain or shortness of breath at that time. But she did look diaphoretic. She has no acute lower leg edema or pain outside of her knee. She has no lower leg pain. She has no chest pain or shortness of breath at this time. On exam, patient is nontoxic. No visible signs distress. Vital signs are stable. She has a mild leukocytosis of 12.8 thousand. Her hemoglobin is 10.9, hematocrit is 32.9. Sodium is 131, potassium 3.3. Glucose 130. Magnesium 1.4. BNP 204. Chest x-ray is unremarkable. EKG is unremarkable. At the time of shift change, patient's CTA of the chest to assess for possible PE has not been obtained. Case discussed with distillation operator attending ER physician, Dr. Goncalves, who will assume care. Patient data External records reviewed:: EMS form Clinical information provided by:: patient, EMS and family Social determinants that could affect healthcare access:: none Patient has the following chronic illnesses:: n/a How is presenting disease/condition affected by chronic disease/condition?: uneffected by Evaluation data The following diagnostics were reviewed and interpreted by me:: lab results and EKG tracing(s) Lab and/or radiology exams considered but not ordered:: n/a Interpretation Summary: Workup is pending Medications / Prescriptions Medications or Prescriptions considered but not ordered:: n/a Medication administrations:: Medication Administration History Discontinued Medications Magnesium Sulfate/Dextrose (Magnesium Sulfate Ivpb) 1 gm in 100 mls @ 100 mls/hr IV X1 ONE Stop: 07/03/25 22:12 Last Infusion: 07/03/25 23:44 Dose: Infused Documented By: Admin: 07/03/25 22:37 Dose: 100 mls/hr Documented By: BRANDI Sodium Chloride (Ns) 500 mls @ 999 mls/hr IV .Q31M ONE Stop: 07/03/25 21:43 Last Infusion: 07/03/25 23:44 Dose: Infused Documented By: Admin: 07/03/25 22:38 Dose: 999 mls/hr Documented By: BRANDI Magnesium Sulfate/Dextrose (Magnesium Sulfate Ivpb) 1 gm in 100 mls @ 100 mls/hr IV X1 ONE Stop: 07/03/25 23:52 Last Infusion: 07/04/25 01:39 Dose: Infused Documented By: Admin: 07/03/25 23:42 Dose: 100 mls/hr Documented By: BRANDI Potassium Chloride (Potassium Chloride 10% 20 Meq/15 Ml Udc) 40 meq PO X1 ONE Stop: 07/03/25 22:54 Last Admin: 07/03/25 23:42 Dose: 40 meq Documented By: [email or web address] See above Consultations Consultation(s) initiated? (list below): No Diagnosis Syncope Differential Diagnosis: vasovagal syncope and pulmonary embolism Most likely diagnosis given after review of the tests above:: Vasovagal syncope, medication reaction Admission Indicated Admission indicated?: not indicated Admission Request Was there a request for admission?: No Disposition Plan Disposition Plan: Discharge Discharge Attestation Discharge Attestation: The patient and all family members were given an opportunity to ask questions and understood the discharge instructions. Discharge instructions specifically effects, indications for sooner follow up or return to the emergency department, and the expected course of current diagnosis. Patient condition: Stable Discharge Plan Plan Patient Disposition: HOME (Self Care) Patient condition on transfer: Stable Prescriptions/Referrals Prescriptions/Med Rec: New magnesium oxide 400 mg magnesium tablet 400 mg PO BID Qty: 60 0RF No Action rosuvastatin 10 mg tablet 10 mg PO QDAY gabapentin 300 mg capsule 300 mg PO QHS Qty: 30 0RF omeprazole 20 mg capsule,delayed release(DR/EC) 20 mg PO QDAY Qty: 30 0RF chlorthalidone 25 mg Tablet 25 mg PO QDAY amlodipine 5 mg tablet 5 mg PO HS atenolol 50 mg tablet 50 mg PO DAILY Patient Comments: TAKE 1 TABLET BY MOUTH EVERY DAY FOR 90 DAYS amlodipine 10 mg tablet 10 mg PO DAILY sennosides-docusate sodium [Senna-S] 8.6-50 mg tablet 1 tab-cap PO QDAY Qty: 30 0RF aspirin 81 mg tablet,delayed release (DR/EC) 81 mg PO BID Qty: 60 0RF acetaminophen [Acetaminophen Extra Strength] 500 mg tablet 1,000 mg PO Q6H MDD 1000mg PRN (Reason: pain) Qty: 90 0RF gabapentin 300 mg capsule 300 mg PO .qhs Qty: 30 0RF doxycycline hyclate 100 mg tablet 100 mg PO BID Qty: 14 0RF oxycodone 5 mg tablet 5 mg PO Q6H MDD 20 PRN (Reason: pain) Qty: 28 0RF Rx Instructions: z96.65 Referrals: Deangelo Springer MD [Primary Care Provider] - In 1 week Problem List Clinical Impression: Near syncope Patient/Caregiver Discharge Instructions Discharge Activity: activity as tolerated Education Materials: ED Fainting, Uncertain Cause, ED Near-Fainting, Uncertain Cause Additional Instructions: Discharge instructions from Dr. Goncalves: 1. After extensive evaluation, there is no life-threatening condition.? Such as stroke or brain tumor or heart attack or pulmonary embolism (blood clots in your lungs) or pneumothorax (collapsed lung). 2. Your symptoms may be due to recent anesthesia/surgery and extra dose of gabapentin and dehydration and low potassium level and low magnesium level. 3. Eat regular nutritious meals. For good hydration, increase oral fluid and maintain clear urine. If dark or yellow, increase oral fluid. To improve potassium level, eat a banana daily. To improve magnesium level, take magnesium pills as prescribed. And increase food rich in magnesium. Such as green and leafy vegetables and peanuts and cashews and almonds. 4. Not every day, increase physical activity little by little. Prolonged inactivity is terrible for your body. 5. See a private doctor on 07/07/2025 for recheck and further care. Ask to review all test results and official radiology reports, to make sure you receive all necessary follow-ups and monitoring, including repeat potassium and magnesium levels. To make sure there is no serious underlying heart condition, ask to help you get more tests for your heart that cannot be done here in the ER.? Such as Holter Monitor (cardiac monitoring at home from a day to even a month), heart stress test (on treadmill or with medication), echocardiogram (imaging of your heart structures), heart catherization (checking for blockages in your heart arteries), and a referral to see a Roof Designer. 6. Seek immediate medical care with worsening or with any concerns.?? Print Language: Bulgarian Stand Alone Forms: Nirmala Award Info., Patient Portal Info Letter
[2025-07-03 20:09] LABS: Basophils # (Auto) 0.0 Thou/mm3 (0.0-0.2); Basophils % (Auto) 0 % (0-2.5); Eosinophils # (Auto) 0.0 Thou/mm3 (0.0-0.5); Eosinophils % (Auto) 0 % (0-10); Hematocrit 32.9 % (36.0-46.0); Hemoglobin 10.9 g/dL (12.0-16.0); Immature Granulocytes Auto 0.11 Thou/mm3 (0.00-0.00); Lymphocytes # (Auto) 1.2 Thou/mm3 (1.0-4.8); Lymphocytes % (Auto) 9 % (10-50); Mean Corpuscular HGB Conc 33.1 g/dl (31.0-37.0); Mean Corpuscular Hemoglobin 27.5 pg (25.0-35.0); Mean Corpuscular Volume 83 fL (80-100); Monocytes # (Auto) 2.0 Thou/mm3 (0.0-0.8); Monocytes % (Auto) 16 % (0-12); Neutrophils # (Auto) 9.5 Thou/mm3 (1.8-7.7); Neutrophils % (Auto) 74 % (37-80); Nucleated Red Blood Cell # 0.00 Thou/mm3 (0.00-0.00); Nucleated Red Blood Cell % 0 /100 WBC (0); Platelet Count 176 Thou/mm3 (140-440); RDW Standard Deviation 40.9 fL (36.4-46.3); Red Blood Count 3.96 Miln/mm3 (4.00-5.20); White Blood Count 12.8 Thou/mm3 (3.6-11.0)
[2025-07-03 20:18] VITALS: BP 139/57; PULSE 66; PULSE 74; RESP 16; TEMP 36.8; O2SAT 96; O2SAT 99; BMI 31.3
[2025-07-03 20:27] LABS: B-Type Natriuretic Peptide 204 pg/mL (0-100)
[2025-07-03 20:28] LABS: Alanine Aminotransferase 10 U/L (10-49); Albumin, Serum 4.2 gm/dL (3.4-4.8); Albumin/Globulin Ratio 1.7 (1.2-2.2); Alkaline Phosphatase 83 U/L (46-116); Anion Gap 9 (7-16); Aspartate Amino Transferase 19 U/L (0-34); BUN/Creatinine Ratio 13 Ratio (12-20); Bilirubin,Total 0.7 mg/dL (0.3-1.2); Blood Urea Nitrogen 16 mg/dL (9-23); Calcium 9.4 mg/dL (8.3-10.6); Calcium (Corrected) 9.4 mg/dL (8.5-10.1); Carbon Dioxide 26.6 mMol/L (20.0-31.0); Chloride 95 mMol/L (98-107); Creatinine (Component) 1.2 mg/dL (0.6-1.3); Estimated Creatinine Clearance 46.8 mL/min (>60); Globulin 2.5 gm/dL (2.3-3.5); Glucose 130 mg/dL (74-106); Lipase 37 U/L (12-53); Magnesium 1.4 mg/dL (1.6-2.6); Osmolality,Calculated 265 (275-295); Potassium 3.3 mMol/L (3.4-5.1); Sodium 131 mMol/L (136-145); Total Protein 6.7 gm/dL (5.7-8.2); Troponin I < 0.020 ng/mL (0.0-0.045); eGFR 47 See Note
[2025-07-03 22:16] VITALS: BP 120/64; PULSE 63; RESP 18; TEMP 36.6; O2SAT 98
[2025-07-03] MEDS: SODIUM CHLORIDE 0.9% 500 ML 500 ML 999 ML IV (22:38)
--- NOTE | 2025-07-03 22:55 | XR_ITS ---
Examination: CT brain head without contrast. 2-D sagittal coronal reconstructions Date and time of exam:July 04, 2025, 0019 hours INDICATIONS: Syncopal episode today CTDI: vol (mGy):47. DLP: (mGycm):905. Technique: Multiple CT axial sections of the brain have been obtained, 5 mm slice thickness. Contrast has not been administered. 2-D sagittal, coronal reconstructions have been obtained Low dose protocols were performed. One or more of the following dose reduction techniques were used; automated exposure control, adjustment of the mA and/or KV according to patient size, use of iterative reconstruction technique. Findings: No significant ventricular enlargement. Intra-axial or extra-axial hemorrhage density is not seen. No mass effect or midline shift Basal cisterns are not remarkable. Fourth ventricle is midline. Cranial vault intact. Impression: Negative for acute hemorrhage, mass effect or midline shift
--- NOTE | 2025-07-03 23:01 | PD.EDADDENDU ---
Emergency Room Addendum <Cordelia Springer - Last Filed: 07/04/25 01:36> Addendum Narrative: I took over the care from previous shift physician, Tawnya Trujillo PA-C, at 11 PM on 07/03/25. See previous notes for complete H & P and ED course. I reviewed all diagnostic test results. My review of the CT head report is NAD. COVID/Influenza negative. Diagnoses include: near syncope. Treatment here from me included Potassium and Magnesium. Based on my best medical judgment, made decision no further evaluation or treatment indicated at this time. Patient understands and agrees to the discharge instructions customized and printed, see below. Discharge instructions from Dr. Goncalves: 1. After extensive evaluation, there is no life-threatening condition.? Such as stroke or brain tumor or heart attack or pulmonary embolism (blood clots in your lungs) or pneumothorax (collapsed lung). 2. Your symptoms may be due to recent anesthesia/surgery and extra dose of gabapentin and dehydration and low potassium level and low magnesium level. 3. Eat regular nutritious meals. For good hydration, increase oral fluid and maintain clear urine. If dark or yellow, increase oral fluid. To improve potassium level, eat a banana daily. To improve magnesium level, take magnesium pills as prescribed. And increase food rich in magnesium. Such as green and leafy vegetables and peanuts and cashews and almonds. 4. Not every day, increase physical activity little by little. Prolonged inactivity is terrible for your body. 5. See a private doctor on 07/07/2025 for recheck and further care. Ask to review all test results and official radiology reports, to make sure you receive all necessary follow-ups and monitoring, including repeat potassium and magnesium levels. To make sure there is no serious underlying heart condition, ask to help you get more tests for your heart that cannot be done here in the ER.? Such as Holter Monitor (cardiac monitoring at home from a day to even a month), heart stress test (on treadmill or with medication), echocardiogram (imaging of your heart structures), heart catherization (checking for blockages in your heart arteries), and a referral to see a Transitions Manager Rn. 6. Seek immediate medical care with worsening or with any concerns Broderick Goncalves MD <Broderick Goncalves MD - Last Filed: 07/04/25 17:47> Addendum Narrative: I took over the care from Tawnya Trujillo PA-C, at 11 PM on 07/03/25. See previous notes for complete H & P and ED course. I reviewed all diagnostic test results. My interpretation of the EKG is sinus rhythm with no acute ST?T changes. My review of the CXR is no acute findings. My review of the CT head report is NAD. Blood remarkable for D-dimer 601, K 3.3, Mg 1.4. COVID/Influenza negative. Diagnoses include: Near syncope Hypokalemia Hypomagnesemia Treatment here included: IV fluid Oral KCl 40 mEq MgSO4 2 gram IV Significant tremor noted. Recommended outpatient management. Based on my best medical judgment, made decision no further evaluation or treatment indicated at this time. Patient and daughter understands and agrees to the discharge instructions customized and printed, see below. Discharge instructions from Dr. Goncalves: 1. After extensive evaluation, there is no life-threatening condition.? Such as stroke or brain tumor or heart attack or pulmonary embolism (blood clots in your lungs) or pneumothorax (collapsed lung). 2. Your symptoms may be due to recent anesthesia/surgery and extra dose of gabapentin and dehydration and low potassium level and low magnesium level. 3. Eat regular nutritious meals. For good hydration, increase oral fluid and maintain clear urine. If dark or yellow, increase oral fluid. To improve potassium level, eat a banana daily. To improve magnesium level, take magnesium pills as prescribed. And increase food rich in magnesium. Such as green and leafy vegetables and peanuts and cashews and almonds. 4. Not every day, increase physical activity little by little. Prolonged inactivity is terrible for your body. 5. See a private doctor on 07/07/2025 for recheck and further care. Ask to review all test results and official radiology reports, to make sure you receive all necessary follow-ups and monitoring, including repeat potassium and magnesium levels. To make sure there is no serious underlying heart condition, ask to help you get more tests for your heart that cannot be done here in the ER.? Such as Holter Monitor (cardiac monitoring at home from a day to even a month), heart stress test (on treadmill or with medication), echocardiogram (imaging of your heart structures), heart catherization (checking for blockages in your heart arteries), and a referral to see a Transitions Manager Rn. 6. Seek immediate medical care with worsening or with any concerns Broderick Goncalves MD
[2025-07-03 23:17] LABS: Thyroid Stimulating Hormone 1.23 uIU/mL (0.55-4.78)
[2025-07-03 23:26] LABS: D-Dimer 601 ng/mL (<600)
[2025-07-03] MEDS: POTASSIUM CHLORIDE 10% 20 MEQ/15 ML UDC 40 MEQ PO (23:42)
[2025-07-04 00:25] VITALS: BP 138/67; PULSE 68; RESP 18; TEMP 36.7; O2SAT 94
--- NOTE | 2025-07-04 00:48 | PRELIM_ITS ---
CT scan of the head without intravenous contrast (axial sections with sagittal and coronal reformats). July 04, 2025 0019 hours Clinical History: Syncope Comparison: No prior study is available for comparison. Findings: There is no evidence of intracranial hemorrhage, mass effect or midline shift. The ventricles and CSF spaces are unremarkable. The calvarium is unremarkable. The mastoid air cells and the visualized paranasal sinuses are clear. Impression: No evidence of intracranial hemorrhage, mass effect or midline shift. Suggest clinical correlation and follow up accordingly. Report Electronically Signed By: Jose Zavala 07/04/2025 12:47:34 AM [EST]
[2025-07-04 01:40] VITALS: BP 124/77; PULSE 70; RESP 17; TEMP 36.7; O2SAT 97
== END 2025-07-04 01:41 | disposition home or self-care (01) ==
PROVIDERS: Physician Assistant Medical; Emergency Provider Emergency Medicine; PCP Family Medicine
DX: R55 Syncope and collapse (principal)
CPT/HCPCS: 36415; 70450; 71045; 80053; 83690; 83735; 83880; 84443; 84484; 85025; 85379; 87400; 87811; 93005; 96365; 96366; 99283; J3475; J7999; A9270

== ENCOUNTER 2025-07-17 08:11 | Outpatient (AMB) | payer MEDICAID, SELFPAY ==
--- NOTE | 2025-07-17 08:38 | ORTHONT_ITS ---
Vital signs 07/17/25 08:40 Height 1.7 m Height Method Stated Weight 89.074 kg Weight Measurement Method Standing Scale BMI 30.8 BP 136/81 H Blood Pressure Source Automatic Cuff Blood Pressure Location Left Upper Arm Position Sitting Respiration 18 Pulse 66 Pulse Source Monitor Temp 97.7 F Temp Source Temporal Artery Scan Pulse Oximetry (%) 94 L Oxygen Delivery Method Room Air Med/Allergies Allergies & Medications Allergies No Known Allergies Allergy (Verified 07/17/25 08:40) Medication Reconciliation chlorthalidone 25 mg tablet 25 mg PO QDAY 06/27/20 [History Confirmed 07/17/25] omeprazole 20 mg capsule,delayed release 20 mg PO QDAY #30 caps 02/20/25 [Rx Confirmed 07/17/25] rosuvastatin 10 mg tablet 10 mg PO QDAY 02/20/25 [History Confirmed 07/17/25] amlodipine 10 mg tablet 10 mg PO DAILY 07/02/25 [History Confirmed 07/17/25] atenolol 50 mg tablet 50 mg PO DAILY 07/02/25 [History Confirmed 07/17/25] doxycycline hyclate 100 mg tablet 100 mg PO BID #14 tabs 07/02/25 [Rx Confirmed 07/17/25] magnesium oxide 400 mg PO BID #60 tabs 07/04/25 [Rx Confirmed 07/17/25] acetaminophen 500 mg tablet 1,000 mg (2 x 500 mg) PO q6hr PRN pain #100 tabs 07/17/25 [Rx] acetaminophen 500 mg tablet 500 mg PO Q6H PRN 07/17/25 [History Confirmed 07/17/25] gabapentin 300 mg capsule 300 mg PO .qhs #30 caps 07/17/25 [Rx] oxycodone 5 mg tablet 5 mg PO Q6HR PRN pain 7 days #28 tabs 07/17/25 [Rx] Exam Exam Breathing is nonlabored. Patient has a normal mood and affect. Bilateral extremities were evaluated and demonstrates sensation intact to light touch. Palpable pedal pulses are present. No significant edema is present. Bilateral hips were examined. The patient has no pain with log roll of the hips. Internal rotation to 30 degrees and external rotation to 30 degrees is painless. Negative FADIR. Left knee was examined today. The left knee is in reasonable alignment. Left knee incisions clean dry intact. Range of motion 0 to 110 degrees Right knee incision is clean dry and intact Assessment and Plan Problem List (1) Arthritis of right knee: Status: Acute Plan Patient is doing well status post right total knee replacement. Will see her back in 4 weeks with new x-rays. She is doing well Advanced Care Planning Discussion Advance care planning discussed with:: patient and other Office Procedures GNS Level of Care Nursing/Assessment Patient Status: Established Patient Nursing Assessment/Reassesment: Medication Reconciliation, Update PMH in EMR and Vital Signs Coordination of Care: Complex Care and Chronic Disease 1-5, Education Complex Pt/Fam, Consent,records obtained, informed consent, Results/Orders obtained and Staff clarify orders Established Patient Charge Established Patient Point Assignment: 95 Established Patient Point Charge: EP Level 3 (80-115) MA Intake Visit Data Collection New Patient or Established: Established Patient (seen at [facility] within 3 years) Reason for Visit:: F/U XRAYS Seen by Clinical Staff ONLY (RN/MA): No Verbal consent obtained for Telemed visit?: No Forest Pathology Teacher Required: Yes PCP or OBGYN visit in last 3 months: Yes Hx Now: No Do You Feel Safe at Home: Yes Authorities Contacted: N/A Questionairres Past Medical History Past Medical History Have you ever been diagnosed with any of the following: Neurological Problems Seizures: No Cardiology Problems Hypercholesterolemia: Yes Congestive Heart Failure: No Edema: No Cellulitis: No Hypertension: Yes Varicose Veins: No Respiratory Problems Chronic Obstructive Pulmonary Disease (COPD): No Asthma: No Pneumonia: No Tuberculosis: No Sleep Apnea: No Smoking: No Smoking Exposure: No Stomache/Intestinal Problems Hepatitis: No Obesity: Yes Genital/Urinary Problems Renal Disease: No Reproductive Problems Previous Pregnancies: Yes (X4) Musculoskeletal Problems Arthritis: Yes Endocrine Problems Diabetes Mellitus Type 1: No Diabetes Mellitus Type 2: No Blood Problems Sickle Cell Disease: No Psychologic Problems Depression: No Other Problems Hospitalization: No Shingles: No Falls: No Blood Transfusions: No Blood Transfusion Reaction: No Anesthesia Reactions: No Chemotherapy: No Radiation Therapy: No MRSA: No Chicken Pox: No Measles: No Mumps: No Cancer: No Surgical History Total Knee Replacement: Yes (LEFT TKA ) Pacemaker: No Subjective Visit Visit for: follow up visit and x-rays Immunization / Flu Flu Vaccine in the Last 12 Months: No Flu Vaccine Exclusion Criteria: No Exclusion Criteria History of Present Illness Chief complaint: F/U XRAYS Patient is a pleasant 74-year-old female with a history of a left total knee replacement done in [place]. She is status post right total knee replacement and is doing well. She reports her pain is controlled Personal History Occupation: RETIRED Red flag PMH: BMI BMI Counceling provided: Yes Pain Pain level (0-10): 7 Pain duration: CONSTANT Pain location: anterior Pain quality: aching Pain timing: increases with activity Associated signs & symptoms: weakness Ambulatory data Ambulatory device: walker Treatments Improvement with previous injections: No Improvement with PT: No Improvement with NSAIDS: no Review of Systems Review of Systems: All systems negative unless otherwise noted in HPI.
[2025-07-17 08:40] VITALS: BP 136/81; PULSE 66; RESP 18; TEMP 36.5; O2SAT 94; BMI 30.8
== END 2025-07-17 08:57 | disposition home or self-care (01) ==
LOC: HODSRG 08:11
PROVIDERS: PCP Physician Assistant; Referring Provider Physician Assistant; Supervising Provider Orthopaedic Surgery Adult Reconstructive Orthopaedic Surgery; Visit Provider Orthopaedic Surgery Adult Reconstructive Orthopaedic Surgery
DX: M17.11 Unilateral primary osteoarthritis, right knee (principal); Z96.651 Presence of right artificial knee joint; I10 Essential (primary) hypertension; E78.00 Pure hypercholesterolemia, unspecified; E66.9 Obesity, unspecified; Z68.30 Body mass index [BMI] 30.0-30.9, adult; Z71.3 Dietary counseling and surveillance
CPT/HCPCS: 99213; G0463

== ENCOUNTER 2025-08-01 09:31 | Outpatient (RCR) | payer MEDICAID, SELFPAY ==
--- NOTE | 2025-08-01 10:08 | PTNOTE_ITS ---
PT OP Initial Eval Patient Information Outpatient Physical Therapy Treatment Date: 08/01/25 Visit Reasons: RT TKA Medical Diagnosis: Z96.651 Treatment Dx #1: R knee pain Treatment Dx #2: Decreased ROM R knee Start of Care: 08/01/25 Date of Onset: 07/02/25 Smoking Status Smoking Status: Never smoker Initial Assessment Subjective: Pt is 74 yr old Greenlandic speaking female s/p R TKA presents ambulating without assistive device. She can walk about 30 minutes and can bend the knee with some pain. She is doing HH chores and sits to rest. PMH: HTN, high cholesterol, L RCR Pt goal: not sure if she needs therapy Objective: R?knee AROM: PROM: ? Flexion: 103 deg 115 deg ? Extension: full ? SLR: ? 65 deg ? Strength: ? Quads and hamstrings 4-/5 ? Symmetrical gait pattern with slightly decreased WB tolerance on R LE Assessment: Pt presentation consistent with post op TKA with decreased ROM, strength ? and WB tolerance. Pt has good knee extension and flexion is limited by ? myofascial limitations and pain.? Pt requires skilled therapy to improve ROM ? and strength and has good rehab potential.? Eval followed by HEP with printout. Short Term and Demand Generator Manager Goals 1.? Ind with HEP 2.? Improved knee ROM to full extension to 115 deg flexion 3.? Improved quad and hamstring strength to 4+/5 4.? Improved ambulatory tolerance to community distances with symmetrical gait pattern Treatment Plan 1. Manual therapy ? 2. Therex ? 3. Modalities as indicated, moist heat, ice, estim Frequency and Duration: 2x a week for 12 sessions plus the evaluation Certification Dates: 08/01/25 to 10/29/25 Procedure Charges OP PT Eval Mod Complex 30 minutes: Yes
== END 2025-08-14 23:59 | disposition home or self-care (01) ==
LOC: CPTX 09:31
PROVIDERS: PCP Orthopaedic Surgery Adult Reconstructive Orthopaedic Surgery; Referring Provider Orthopaedic Surgery Adult Reconstructive Orthopaedic Surgery; Visit Provider Orthopaedic Surgery Adult Reconstructive Orthopaedic Surgery
DX: M25.561 Pain in right knee (principal); Z96.651 Presence of right artificial knee joint; I10 Essential (primary) hypertension
CPT/HCPCS: 97162

== ENCOUNTER 2025-08-16 13:04 | Outpatient (AMB) | payer MEDICAID, SELFPAY ==
--- NOTE | 2025-08-16 13:15 | XR_ITS ---
Examination: Bilateral AP knees single view Right knee PA lateral axial 3 views TECHNIQUE: Bilateral AP knees standing single view Right knee PA flexion standing single view, lateral standing, axial 3 views total 4 views Date and time: August 16, 2025 1331 hours INDICATIONS: Status post right knee replacement 6 weeks ago. FINDINGS: Moderate osteopenia. Total right knee replacement, satisfactory alignment No loosening of the prosthetic components No patellar dislocation Total left knee arthroplasty with satisfactory alignment IMPRESSION: Bilateral total knee arthroplasties with satisfactory alignment
[2025-08-16 13:16] VITALS: BP 106/65; PULSE 73; RESP 18; TEMP 36.6; O2SAT 94; BMI 30.7
--- NOTE | 2025-08-16 13:16 | PD.ORTHCLVIS ---
Vital signs 08/16/25 13:16 Height 1.7 m Height Method Stated Weight 88.677 kg Weight Measurement Method Standing Scale BMI 30.7 BP 106/65 Blood Pressure Source Automatic Cuff Blood Pressure Location Left Upper Arm Position Sitting Respiration 18 Pulse 73 Pulse Source Monitor Temp 97.9 F Temp Source Temporal Artery Scan Pulse Oximetry (%) 94 L Oxygen Delivery Method Room Air Med/Allergies Allergies & Medications Allergies No Known Allergies Allergy (Verified 07/17/25 08:40) Exam Exam Breathing is nonlabored. Patient has a normal mood and affect. Bilateral extremities were evaluated and demonstrates sensation intact to light touch. Palpable pedal pulses are present. No significant edema is present. Bilateral hips were examined. The patient has no pain with log roll of the hips. Internal rotation to 30 degrees and external rotation to 30 degrees is painless. Negative FADIR. Left knee was examined today. The left knee is in reasonable alignment. Left knee incisions clean dry intact. Range of motion 0 to 110 degrees Right knee incision is clean dry and intact. Range of motion is 0 to 105 degrees Assessment and Plan Problem List (1) Arthritis of right knee: Status: Acute Plan Patient is doing well status post right total knee replacement. We will see her back in 2 months. She is very happy with her progress Advanced Care Planning Discussion Advance care planning discussed with:: patient and other Office Procedures GNS Level of Care Nursing/Assessment Patient Status: Established Patient Nursing Assessment/Reassesment: Medication Reconciliation, Update PMH in EMR and Vital Signs Coordination of Care: Complex Care and Chronic Disease 1-5, Education Complex Pt/Fam, Consent,records obtained, informed consent, Results/Orders obtained and Staff clarify orders Established Patient Charge Established Patient Point Assignment: 95 Established Patient Point Charge: EP Level 3 (80-115) MA Intake Visit Data Collection New Patient or Established: Established Patient (seen at [facility] within 3 years) Reason for Visit:: F/U XRAYS Seen by Clinical Staff ONLY (RN/MA): No Verbal consent obtained for Telemed visit?: No Preventive Medicine Physician Required: Yes PCP or OBGYN visit in last 3 months: Yes Hx Now: No Do You Feel Safe at Home: Yes Authorities Contacted: N/A Questionairres Past Medical History Past Medical History Have you ever been diagnosed with any of the following: Neurological Problems Seizures: No Cardiology Problems Hypercholesterolemia: Yes Congestive Heart Failure: No Edema: No Cellulitis: No Hypertension: Yes Varicose Veins: No Respiratory Problems Chronic Obstructive Pulmonary Disease (COPD): No Asthma: No Pneumonia: No Tuberculosis: No Sleep Apnea: No Smoking: No Smoking Exposure: No Stomache/Intestinal Problems Hepatitis: No Obesity: Yes Genital/Urinary Problems Renal Disease: No Reproductive Problems Previous Pregnancies: Yes (X4) Musculoskeletal Problems Arthritis: Yes Endocrine Problems Diabetes Mellitus Type 1: No Diabetes Mellitus Type 2: No Blood Problems Sickle Cell Disease: No Psychologic Problems Depression: No Other Problems Hospitalization: No Shingles: No Falls: No Blood Transfusions: No Blood Transfusion Reaction: No Anesthesia Reactions: No Chemotherapy: No Radiation Therapy: No MRSA: No Chicken Pox: No Measles: No Mumps: No Cancer: No Surgical History Total Knee Replacement: Yes (LEFT TKA ) Pacemaker: No Subjective Visit Visit for: follow up visit and x-rays Immunization / Flu Flu Vaccine in the Last 12 Months: No Flu Vaccine Exclusion Criteria: No Exclusion Criteria History of Present Illness Chief complaint: F/U XRAYS Patient is a pleasant 74-year-old female with a history of a left total knee replacement done in [place]. She is status post right total knee replacement and is doing well. She reports her pain is controlled Personal History Occupation: RETIRED Red flag PMH: BMI BMI Counceling provided: Yes Pain Pain level (0-10): 7 Pain duration: CONSTANT Pain location: anterior Pain quality: aching Pain timing: increases with activity Associated signs & symptoms: weakness Ambulatory data Ambulatory device: walker Treatments Improvement with previous injections: No Improvement with PT: No Improvement with NSAIDS: no Review of Systems Review of Systems: All systems negative unless otherwise noted in HPI.
== END 2025-08-16 13:22 | disposition home or self-care (01) ==
LOC: HODSRG 13:04
PROVIDERS: PCP Physician Assistant; Referring Provider Physician Assistant; Supervising Provider Orthopaedic Surgery Adult Reconstructive Orthopaedic Surgery; Visit Provider Orthopaedic Surgery Adult Reconstructive Orthopaedic Surgery
DX: Z47.1 Aftercare following joint replacement surgery (principal); Z96.651 Presence of right artificial knee joint; I10 Essential (primary) hypertension; E66.9 Obesity, unspecified; Z68.30 Body mass index [BMI] 30.0-30.9, adult
CPT/HCPCS: 73564; 99213; G0463

== ENCOUNTER 2025-11-01 11:02 | Outpatient (AMB) | payer MEDICAID, SELFPAY ==
[2025-11-01 11:26] VITALS: BP 135/74; PULSE 73; RESP 18; TEMP 36.3; O2SAT 94; BMI 31.1
--- NOTE | 2025-11-01 11:26 | ORTHONT_ITS ---
Vital signs 11/01/25 11:26 Height 1.7 m Height Method Stated Weight 89.868 kg Weight Measurement Method Standing Scale BMI 31.1 BP 135/74 H Blood Pressure Source Automatic Cuff Blood Pressure Location Left Upper Arm Position Sitting Respiration 18 Pulse 73 Pulse Source Monitor Temp 97.4 F Temp Source Temporal Artery Scan Pulse Oximetry (%) 94 L Oxygen Delivery Method Room Air Med/Allergies Allergies & Medications Allergies No Known Allergies Allergy (Verified 11/01/25 11:27) Medication Reconciliation chlorthalidone 25 mg tablet 25 mg PO QDAY 06/27/20 [History Confirmed 11/01/25] omeprazole 20 mg capsule,delayed release 20 mg PO QDAY #30 caps 02/20/25 [Rx Confirmed 11/01/25] rosuvastatin 10 mg tablet 10 mg PO QDAY 02/20/25 [History Confirmed 11/01/25] amlodipine 10 mg tablet 10 mg PO DAILY 07/02/25 [History Confirmed 11/01/25] atenolol 50 mg tablet 50 mg PO DAILY 07/02/25 [History Confirmed 11/01/25] doxycycline hyclate 100 mg tablet 100 mg PO BID #14 tabs 07/02/25 [Rx Confirmed 11/01/25] magnesium oxide 400 mg PO BID #60 tabs 07/04/25 [Rx Confirmed 11/01/25] acetaminophen 500 mg tablet 1,000 mg (2 x 500 mg) PO q6hr PRN pain #100 tabs 07/17/25 [Rx Confirmed 11/01/25] acetaminophen 500 mg tablet 500 mg PO Q6H PRN 07/17/25 [History Confirmed 11/01/25] gabapentin 300 mg capsule 300 mg PO .qhs #90 caps 11/01/25 [Rx] Exam Exam Breathing is nonlabored. Patient has a normal mood and affect. Bilateral extremities were evaluated and demonstrates sensation intact to light touch. Palpable pedal pulses are present. No significant edema is present. Bilateral hips were examined. The patient has no pain with log roll of the hips. Internal rotation to 30 degrees and external rotation to 30 degrees is painless. Negative FADIR. Left knee was examined today. The left knee is in reasonable alignment. Left knee incisions clean dry intact. Range of motion 0 to 110 degrees Right knee incision is clean dry and intact. Range of motion is 0 to 105 degrees Assessment and Plan Problem List (1) Arthritis of right knee: Status: Acute Plan Patient is doing well status post right total knee replacement. We will see her back in 8 months. She is very happy with her progress Advanced Care Planning Discussion Advance care planning discussed with:: patient and other Office Procedures GNS Level of Care Nursing/Assessment Patient Status: Established Patient Nursing Assessment/Reassesment: Medication Reconciliation, Update PMH in EMR and Vital Signs Coordination of Care: Complex Care and Chronic Disease 1-5, Education Complex Pt/Fam, Consent,records obtained, informed consent, Results/Orders obtained and Staff clarify orders Established Patient Charge Established Patient Point Assignment: 95 Established Patient Point Charge: EP Level 3 (80-115) MA Intake Visit Data Collection New Patient or Established: Established Patient (seen at [facility] within 3 years) Reason for Visit:: 6 WK R TKA Seen by Clinical Staff ONLY (RN/MA): No Verbal consent obtained for Telemed visit?: No Master Control Supervisor Required: Yes PCP or OBGYN visit in last 3 months: Yes Hx Now: No Do You Feel Safe at Home: Yes Authorities Contacted: N/A Questionairres Past Medical History Past Medical History Have you ever been diagnosed with any of the following: Neurological Problems Seizures: No Cardiology Problems Hypercholesterolemia: Yes Congestive Heart Failure: No Edema: No Cellulitis: No Hypertension: Yes Varicose Veins: No Respiratory Problems Chronic Obstructive Pulmonary Disease (COPD): No Asthma: No Pneumonia: No Tuberculosis: No Sleep Apnea: No Smoking: No Smoking Exposure: No Stomache/Intestinal Problems Hepatitis: No Obesity: Yes Genital/Urinary Problems Renal Disease: No Reproductive Problems Previous Pregnancies: Yes (X4) Musculoskeletal Problems Arthritis: Yes Endocrine Problems Diabetes Mellitus Type 1: No Diabetes Mellitus Type 2: No Blood Problems Sickle Cell Disease: No Psychologic Problems Depression: No Other Problems Hospitalization: No Shingles: No Falls: No Blood Transfusions: No Blood Transfusion Reaction: No Anesthesia Reactions: No Chemotherapy: No Radiation Therapy: No MRSA: No Chicken Pox: No Measles: No Mumps: No Cancer: No Surgical History Total Knee Replacement: Yes (LEFT TKA ) Pacemaker: No Subjective Visit Visit for: follow up visit and x-rays Immunization / Flu Flu Vaccine in the Last 12 Months: No Flu Vaccine Exclusion Criteria: No Exclusion Criteria History of Present Illness Chief complaint: Right TKA Patient is a pleasant 74-year-old female with a history of a left total knee replacement done in [place]. She is status post right total knee replacement and is doing well. She reports her pain is controlled Personal History Occupation: RETIRED Red flag PMH: BMI BMI Counceling provided: Yes Pain Pain level (0-10): 0 Pain duration: CONSTANT Pain location: anterior Pain quality: aching Pain timing: increases with activity Associated signs & symptoms: weakness Ambulatory data Ambulatory device: walker Treatments Improvement with previous injections: No Improvement with PT: No Improvement with NSAIDS: no Review of Systems Review of Systems: All systems negative unless otherwise noted in HPI.
== END 2025-11-01 11:40 | disposition home or self-care (01) ==
LOC: HODSRG 11:02
PROVIDERS: PCP Physician Assistant; Referring Provider Physician Assistant; Supervising Provider Orthopaedic Surgery Adult Reconstructive Orthopaedic Surgery; Visit Provider Orthopaedic Surgery Adult Reconstructive Orthopaedic Surgery
DX: M17.11 Unilateral primary osteoarthritis, right knee (principal)
CPT/HCPCS: 99213; G0463